=== PATIENT | male | born 1955 | race Caucasian/White ===

== ENCOUNTER 2018-04-26 15:59 | Outpatient (CLI) | payer OTHER ==
--- NOTE | 2018-04-26 13:04 | RAD ---
PA AND LATERAL CHEST RADIOGRAPH: Date: 04-26-18 History: Dyspnea. Comparison: 01-13-18 FINDINGS: Cardiac silhouette is at the upper limits of normal in size. Pulmonary vasculature is within normal l imits. The lungs remain clear. There has been no interval change compared to the prior exam. IMPRESSION: No acute cardiopulmonary process. POS: [facility]
== END 2018-04-26 16:00 | disposition home or self-care (01) ==
LOC: RAD 15:59
PROVIDERS: ATTEND Internal Medicine Critical Care Medicine
DX: R06.00 Dyspnea, unspecified (principal)
CPT/HCPCS: 71046